=== PATIENT | male | born 1955 | race Caucasian/White ===

== ENCOUNTER 2020-05-22 10:39 | Outpatient (CLI) | payer OTHER, SELFPAY ==
--- NOTE | ~2020-05-22 | XR_ITS ---
XR hip RT 2V w AP pelvis 05/22/2020 11:01 Indication: Right hip pain Procedure: 3 views right hip Comparison: No prior studies for comparison. Findings: There is mild-moderate osteoarthritis of the hips, right greater than left. There is lower lumbar spondylosis. Pelvic rings are intact. No significant soft tissue abnormality. No radiopaque fo reign bodies. Impression: 1: Mild-moderate osteoarthritis of the hips, right greater than left. Reviewed, dictated and finalized at location B. Impression: 1: Mild-moderate osteoarthritis of the hips, right greater than left.
== END 2020-05-22 10:40 | disposition home or self-care (01) ==
LOC: ANHIMG 10:44
PROVIDERS: PCP Family Medicine; Visit Provider Physician Assistant
DX: M16.0 Bilateral primary osteoarthritis of hip (principal)
CPT/HCPCS: 73502

== ENCOUNTER → 2020-10-23 10:16 | Outpatient (CLI) | payer OTHER, SELFPAY ==
--- NOTE | ~2020-10-23 | XR_ITS ---
XR chest 2V DATE: 10/23/2020 10:37 INDICATION: Chest pain TECHNIQUE: 2 views COMPARISON: 01/27/2011 PA and lateral chest FINDINGS: Normal heart size. There is aortic tortuosity. No hilar or mediastinal enlargement. No pulmonary infiltrate or consolidation, pleural effusion or pulmonary vascular congestion or pneumo thorax. IMPRESSION: No active cardiopulmonary disease Aortic tortuosity Reviewed, dictated and finalized at location B. S SPECIALIST
== END ==
PROVIDERS: PCP Family Medicine; Visit Provider Physician Assistant Medical
DX: R07.9 Chest pain, unspecified (principal); I77.1 Stricture of artery
CPT/HCPCS: 71046

== ENCOUNTER 2020-10-25 09:26 | Outpatient (CLI) | payer OTHER, SELFPAY ==
--- NOTE | 2020-10-25 09:47 | EST_ITS ---
Patient Info Name: Jose Garcia Age: 65 years : 1955 Gender: Male Ht: 71 in Wt: 245 lbs BSA: 2.40 m2 Exam Date: 10/25/2020 10:37 AM Exam Location: [facility] Stress Patient Status: Outpatient Admit Date: 10/25/2020 Staff Ordering Physician: Trenton Peguero PA-C Attending Provider: Trenton Peguero PA-C Exercise Technologist: Judy Lara RDCS Exercise Physician: Amaury Diana DO Exam Type: CA stress test treadmill Study Info Indications R07.9 - Chest pain, unspecified A treadmill exercise stress test was performed. Summary 1. 1. Negative Ruben exercise stress test for ischemic ST changes by ECG criteria. 2. 2. Reduced functional capacity, achieving 7 METs of workload. 3. 3. Rapid HR response to exercise. 4. 4. Appropriate HR recovery at 1 minute post exercise. 5. 5. No imaging with stress testing. 6. 6. Patient informed of the above results. Protocol: Ruben Stress ECG Details Stage: REST Duration (min): 6 min : 37 sec Speed (mph): 0.0 Grade (%): 0 HR (bpm): 100 SBP (mmHg): 114 DBP (mmHg): 72 METS: --- Stage: REST Duration (min): 20 min : 11 sec Speed (mph): 0.0 Grade (%): 0 HR (bpm): 91 SBP (mmHg): 114 DBP (mmHg): 72 METS: --- Stage: STAGE 1 Duration (min): 1 min : 0 sec Speed (mph): 1.7 Grade (%): 10 HR (bpm): 130 SBP (mmHg): 114 DBP (mmHg): 72 METS: --- Stage: STAGE 1 Duration (min): 2 min : 0 sec Speed (mph): 1.7 Grade (%): 10 HR (bpm): 139 SBP (mmHg): 114 DBP (mmHg): 72 METS: --- Stage: STAGE 1 Duration (min): 3 min : 0 sec Speed (mph): 1.7 Grade (%): 10 HR (bpm): 143 SBP (mmHg): 162 DBP (mmHg): 73 METS: --- Stage: STAGE 2 Duration (min): 1 min : 0 sec Speed (mph): 2.5 Grade (%): 12 HR (bpm): 149 SBP (mmHg): 162 DBP (mmHg): 73 METS: --- Stage: STAGE 2 Duration (min): 2 min : 0 sec Speed (mph): 2.5 Grade (%): 12 HR (bpm): 153 SBP (mmHg): 153 DBP (mmHg): 86 METS: --- Stage: STAGE 2 Duration (min): 2 min : 0 sec Speed (mph): 2.5 Grade (%): 12 HR (bpm): 153 SBP (mmHg): 153 DBP (mmHg): 86 METS: --- Stage: RECOVERY Duration (min): 0 min : 59 sec Speed (mph): 0.0 Grade (%): 0 HR (bpm): 140 SBP (mmHg): 155 DBP (mmHg): 82 METS: --- Stage: RECOVERY Duration (min): 1 min : 59 sec Speed (mph): 0.0 Grade (%): 0 HR (bpm): 125 SBP (mmHg): 155 DBP (mmHg): 82 METS: --- Stage: RECOVERY Duration (min): 2 min : 59 sec Speed (mph): 0.0 Grade (%): 0 HR (bpm): 118 SBP (mmHg): 174 DBP (mmHg): 83 METS: --- Stage: RECOVERY Duration (min): 3 min : 59 sec Speed (mph): 0.0 Grade (%): 0 HR (bpm): 112 SBP (mmHg): 174 DBP (mmHg): 83 METS: --- Stage: RECOVERY Duration (min): 4 min : 59 sec Spe
== END 2020-10-25 09:27 | disposition home or self-care (01) ==
PROVIDERS: PCP Family Medicine; Visit Provider Physician Assistant Medical
DX: R07.9 Chest pain, unspecified (principal)
CPT/HCPCS: 93017

== ENCOUNTER 2020-11-07 15:59 | Outpatient (CLI) | payer OTHER, SELFPAY | END 2020-11-07 16:00 | disposition home or self-care (01) | LOC: ANHCOVIDVC 15:59 | PROVIDERS: PCP Family Medicine | DX: Z23 Encounter for immunization (principal) | CPT/HCPCS: 0001A; 91300 ==

== ENCOUNTER 2020-11-28 15:56 | Outpatient (CLI) | payer OTHER, SELFPAY | END 2020-11-28 15:57 | disposition home or self-care (01) | LOC: ANHCOVIDVC 15:56 | PROVIDERS: PCP Family Medicine | DX: Z23 Encounter for immunization (principal) | CPT/HCPCS: 0002A; 91300 ==

== ENCOUNTER 2021-06-11 09:49 | Outpatient (CLI) | payer OTHER, SELFPAY ==
--- NOTE | 2021-06-11 | ECG_ITS ---
Measurements Intervals [place] Rate: 91 P: 33 WI: 173 QRS: 15 QRSD: 104 T: 52 QT: 329 QTc: 405 Interpretive Statements SINUS RHYTHM EARLY PRECORDIAL R/S TRANSITION BORDERLINE ECG Electronically Signed On 06-11-2021 11:09:03 CDT by Amaury Diana D.O.
[2021-06-11 10:25] LABS: Hematocrit 54.9 % (42.0-52.0); Hemoglobin 18.2 g/dL (14.0-18.0)
[2021-06-11 10:39] LABS: Albumin Level 4.5 g/dL (3.5-5.1); Estimated Glomerular Filt Rate 51; Glucose 97 mg/dL (65-110)
[2021-06-11 10:47] LABS: Hemoglobin A1C 5.5 % (<5.7); Urine Cotinine NEGATIVE
== END 2021-06-11 09:50 | disposition home or self-care (01) ==
LOC: ANHLAB 09:55
PROVIDERS: PCP Family Medicine; Visit Provider Orthopaedic Surgery
DX: M16.11 Unilateral primary osteoarthritis, right hip (principal); Z01.818 Encounter for other preprocedural examination; R94.31 Abnormal electrocardiogram [ECG] [EKG]
CPT/HCPCS: 80307; 82040; 82565; 82947; 83036; 85014; 85018; 93005

== ENCOUNTER 2021-06-20 09:46 | Outpatient (CLI) | payer OTHER, SELFPAY ==
[2021-06-20 11:29] LABS: Basophils Absolute Auto 0.1 K/mm3 (0.0-0.1); Basophils Percent Auto 1.2 % (0.2-1.2); Eosinophils Absolute Auto 0.2 K/mm3 (0-0.3); Eosinophils Percent Auto 2.6 % (0-4.4); Hematocrit 57.8 % (42.0-52.0); Hemoglobin 19.1 g/dL (14.0-18.0); Immature Granulocyte Absolute 0.02 K/mm3 (0.00-0.031); Immature Granulocyte Percent A 0.3 % (0-0.5); Lymphocytes Absolute Auto 2.25 K/mm3 (0.9-3.2); Lymphocytes Percent Auto 29.2 % (18.3-44.2); Mean Corpuscular Hemoglobin 32.9 pg (26-34); Mean Corpuscular Volume 99.5 fl (80-100); Mean Platelet Volume 9.1 fl (7.4-10.4); Monocytes Absolute Auto 0.8 K/mm3 (0.1-0.6); Monocytes Percent Auto 10.6 % (2.6-8.5); Neutrophils Absolute Auto 4.3 K/mm3 (1.3-6.7); Neutrophils Percent Auto 56.1 % (45.5-73.1); Platelet Count Result 255 k/mm3 (150-375); Red Blood Count 5.81 M/mm3 (4.6-6.20); Red Cell Distribution Width 13.6 % (11.5-14.5); White Blood Count 7.7 K/mm3 (4.5-10.0)
[2021-06-20 12:16] LABS: Anion Gap 9 mmol/L (8-16); Blood Urea Nitrogen 15 mg/dL (9-20); Calcium 9.7 mg/dL (8.4-10.2); Carbon Dioxide 28 mmol/L (22-30); Chloride 101 mmol/L (98-107); Estimated Glomerular Filt Rate > 60; Glucose 93 mg/dL (65-110); Potassium 4.6 mmol/L (3.4-5.0); Sodium 138 mmol/L (137-145)
== END 2021-06-20 09:47 | disposition home or self-care (01) ==
LOC: ANHSURGERY 09:48
PROVIDERS: Anesthesiology; PCP Family Medicine; Visit Provider Orthopaedic Surgery
DX: M16.11 Unilateral primary osteoarthritis, right hip (principal); E11.9 Type 2 diabetes mellitus without complications; Z01.818 Encounter for other preprocedural examination
CPT/HCPCS: 36415; 80048; 85025; 87081

== ENCOUNTER 2021-07-09 00:39 | Day surgery (SDC) | payer OTHER, SELFPAY ==
[2021-06-20 10:07] VITALS: BP 143/90; PULSE 93; RESP 18; TEMP 36.7; O2SAT 95; BMI 33.8
--- NOTE | 2021-07-08 14:29 | WPDANESEPPF ---
Anes - Initial Pre Proc Eval Procedure: Operation Date: 07/09/21 12:00 Proposed Procedures p Right Total Hip Arthroplasty - Donald James MD Date/Time: 07/08/21 14:29 Surgeon: Donald James MD Pre Op Diagnosis: Primary OA Rt Hip Patient Data Age: 66 Gender: M Height: 1.8 m Weight: 110 kg Last Vital Signs Temp 36.7 C 06/20/21 10:07 Pulse 93 06/20/21 10:07 Resp 18 06/20/21 10:07 BP 143/90 H 06/20/21 10:07 Pulse Ox 95 06/20/21 10:07 Allergies Allergy/AdvReac Type Severity Reaction Status Date / Time neomycin Allergy Mild Redness of Verified 07/09/21 10:03 Skin polymyxin B Allergy Mild Redness of Verified 07/09/21 10:03 Skin Home Medications Medication Instructions Recorded Confirmed Type furosemide 20 mg tablet 20 mg PO DAILY PRN tablet 04/21/21 07/09/21 History metformin 500 mg tablet,extended 500 mg PO DAILY #90 tablet 04/21/21 07/09/21 Rx release 24 hr cholecalciferol (vitamin D3) 125 mcg PO DAILY 06/20/21 07/09/21 History lisinopril 10 mg PO HS 06/20/21 07/09/21 History multivitamin [Multiple Vitamins] 1 tablet PO DAILY 06/20/21 07/09/21 History simvastatin 10 mg PO HS 06/20/21 07/09/21 History zolpidem 12.5 mg PO HS 06/20/21 07/09/21 History Patient hx anesthesia problems: none Family hx anesthesia problems: none Results Review: All pre-operative results and documents have been reviewed as part of the pre-operative evaluation. [facility] Past Medical History Medical History (Updated 07/08/21 @ 14:29 by Candelario Bañuelos MD) Bilateral hip joint arthritis Hernia (~2008) High cholesterol Low back pain Metabolic syndrome Obesity (BMI 30.0-34.9) Open fracture of ankle (~2011) Prediabetes Sleep apnea Tachyarrhythmia Surgical History Surgical History History of surgery on arm (~1992) Accident to the right arm, surgery to repair damage Family History Family History Father Malignant neoplasm of prostate Family history of congestive heart failure Patient's father is Mother Family history of primary malignant neoplasm of liver Family history of malignant neoplasm of brain Family history of malignant neoplasm of breast Patient's mother is Other No family history of malignant neoplasm Social History Social History Smoking packs per day: 1 Smoking cigarettes per day: 20.0 Years smoked: 15 Smoking pack-years: 15.00 Smoking status: Former smoker Tobacco type: cigarettes Smoking end date: 03/06/99 Alcohol intake: current Substance use: never Living arrangements: with family Additional living arrangements comments: Spiritual care concerns: No Anes - Eval Final PreProcedure Day of Procedure 07/08/21 14:29 Patient weight: obese Heart: regular rate and rhythm Lungs: clear to auscultation and normal air movement Airway: Mallampati scale class II Neurological: alert and oriented Last oral intake: >/= 8 hours ASA classification: III Emergent: no Anesthetic plan: proceed Anesthesia type and monitoring: general LMA and ETT Results Review: All pre-operative results and documents have been reviewed as part of the pre-operative evaluation. Informed Consent: The patient's anesthetic plan and its attendant risks and benefits were discussed with the patient/family/POA. Questions were solicited and answers provided to the satisfaction of the patient/family/POA.
[2021-07-09] VITALS (14 sets, daily range): BP systolic 103–133; BP diastolic 64–89; PULSE 78–109; RESP 10–20; TEMP 36.2–36.6; O2SAT 91–97
--- NOTE | ~2021-07-09 | XR_ITS ---
XR hip RT min 2V DATE: 07/09/2021 16:01 INDICATION: Right total hip replacement TECHNIQUE: Postoperative portable AP and crosstable lateral views COMPARISON: 06/04/2021 right hip FINDINGS: Status post right femoral head and neck resection and right total hip replacement. No fracture or dislocation. There is expected postoperative mild subcutaneous emphysema. IMPRESSION: Right total hip arthroplasty Reviewed, dictated and finalized at location A.
[2021-07-09] MEDS: ACETAMINOPHEN 500 MG TABLET 1000 MG PO (10:07)
[2021-07-09 10:26] LABS: Glucose Point of Care 97 mg/dl (65-105)
[2021-07-09] MEDS: LACTATED RINGERS 1,000 ML 30 ML IV CONT ×2 (10:27→14:53)
[2021-07-09] MEDS: TRANEXAMIC ACID 1,000MG/ISO100 1,000 MG/100 ML BAG 200 MG IVPB (11:41)
--- NOTE | 2021-07-09 12:10 | WPDHPUPDATE1 ---
History and Physical Update Update Date/Time: 07/09/21 12:10 History and Physical has been reviewed, including an updated exam of the patient. There are NO changes in the patient's condition. Risks, benefits, and alternatives have been discussed and questions answered. Patient agrees to proceed with procedure.
[2021-07-09] MEDS: ceFAZolin 2 GM/D5W 50 ML 2 GM/50 ML BAG IVPB ×2 (12:16→20:03)
[2021-07-09] MEDS: fentaNYL CITRATE INJ (*CRX) 100 MCG/2 ML VIAL 25 MCG IV PUSH ×8 (15:03→15:46)
--- NOTE | 2021-07-09 15:27 | P.OP_ITS ---
Procedure Note - Detailed Date of Procedure 07/09/21 Pre-op Diagnosis Primary OA Rt Hip Post-op Diagnosis same Procedure Performed Right Total Hip Arthroplasty Surgeon Donald James MD Braider Operator Alicia Houston PA-C Anesthesia general Description of Procedure The patient was given preoperative antibiotics. A general anesthetic was administered. The patient was carefully placed in the lateral decubitus position on the PEG board. The shoulders and hips were carefully positioned for component and leg length positioning reference. The hip was prepped and draped in the usual sterile fashion. A longitudinal incision was created over the posterior aspect of the greater trochanter. Careful dissection was brought down through the deep fascia with electrocautery. A minimally invasive optimized posterior approach to the hip was performed. The short external rotators and c apsule were taken down in an L-shaped capsulotomy. The tissue was tagged for later repair using number 2 high strength suture. The femoral neck was measured and taken in situ. The femoral head was removed. The acetabulum was carefully exposed. The inferior capsule was released. The labrum was resected. The acetabulum was sequentially reamed to the intended cup size. The cup was impacted into position with excellent press-fit. Typical anatomic landmarks, including the bony contact points as well as the inferior transverse acetabular ligament were used to confirm cup positioning with preoperative templating. Attention was turned to the femur, which was carefully exposed. The hip was reamed and then broached sequentially. Excellent press-fit was obtained with the broach. The hip was trialed. Measurements were utilized, including the lesser trochanter as well as the center of the femoral head and the tip of the trochanter, and excellent assessment of the offset and leg lengths were confirmed. The real component was impacted into position. Trialing confirmed appropriate leg length and offset with soft tissue balancing as well apparent feel of the leg, both at the knee and the heel. Soft tissues were assessed using the the iliotibial band. Reduction of the posterior capsule and external rotators were also used as a secondary assessment. The hip was copiously irrigated with pulsatile lavage antibiotic solution periodically throughout the procedure. The real components were then assembled and reduced. The hip was stable throughout typical maneuvers, including extension, external rotation to 70 degrees, the position of sleep as well as flexion to 90 degrees with internal rotation past 45 degrees. The shake test confirmed stability without impingement. Osteophytes were removed as necessary. The short external rotators and capsule were repaired back to the posterior trochanter through drill holes. The deep fascia was repaired with running number 2 Quill suture, followed by 0 Stratafix suture and 2-0 Stratafix suture in the dermis. Steri- Strips were placed on the skin, followed by a sterile silver occlusive dressing. There were no complications. Meticulous hemostasis was maintained with the AquaMantys device. The patient was brought to the recovery room in stable condition. There were no complications. Implants The Accolade II hip stem, 127 degree size 5 , was utilized with excellent press-fit. The 56 mm Trident II acetabular component was impacted with excellent press-fit stability. The +0 , 36 mm Biolox ceramic femoral head was utilized. Estimated Blood Loss -300.0 Drains No Packing No Pathology none sent Complications No immediate complications Condition stable Disposition PACU
--- NOTE | 2021-07-09 15:52 | SUR.PHASEI ---
PORTABLE XRAY OF RIGHT HIP.
[2021-07-09] MEDS: KETOROLAC 30 MG/ML VIAL (*BKC) IV PUSH (16:25)
[2021-07-09] MEDS: HYDROmorphone HCL INJ (*CRX) 1 MG/ML SYR 0.5 MG IV PUSH ×2 (16:36→16:47)
--- NOTE | 2021-07-09 17:00 | ADMGEN ---
This patient, Jose Garcia, was admitted to Medical Room 253-01. Patient/family oriented to hospital policies and general routines including ID bracelet, bed and alarms, visiting hours, pain management, procedures, bathroom and other care routines, personal items, smoking policy, room service/diet, and visiting hours. Information on how to activate the Rapid Response Team has been discussed. Patient/Family are encouraged to report perceived risks to care and to ask questions if they do not understand what they are told or what they should do.
[2021-07-09 17:29] LABS: Glucose Point of Care 102 mg/dl (65-105)
[2021-07-09 18:02] LABS: Hematocrit 49.9 % (42.0-52.0); Hemoglobin 16.4 g/dL (14.0-18.0)
[2021-07-09 18:07] LABS: Glucose Point of Care 117 mg/dl (65-105)
[2021-07-09] MEDS: MELOXICAM 7.5 MG TABLET PO (18:28)
[2021-07-09] MEDS: DOCUSATE SODIUM 100 MG CAPSULE PO (18:28)
[2021-07-09] MEDS: ASPIRIN 81 MG ENTERIC TABLET PO (18:28)
--- NOTE | 2021-07-09 19:00 | WPDCN ---
Assessment and Plan Assessment and plan (1) Arthritis of right hip: Code(s): M16.11 - Unilateral primary osteoarthritis, right hip Status: Acute Assessment and Plan: Postoperative day 0 status post right hip arthroplasty. Wound care and pain control will be deferred to Dr. James as well as DVT prophylaxis. Fall precautions initiated. PT / OT consulted. (2) Obstructive sleep apnea on CPAP: Code(s): G47.33 - Obstructive sleep apnea (adult) (pediatric); Z99.89 - Dependence on other enabling machines and devices Status: Acute Assessment and Plan: CPAP will be provided for the patient to use while hospitalized. (3) Hypertension: Code(s): I10 - Essential (primary) hypertension Status: Acute Assessment and Plan: Blood pressures were reviewed and they have been stable postoperatively. Continue antihypertensives and monitor daily. (4) Dyslipidemia: Code(s): E78.5 - Hyperlipidemia, unspecified Status: Acute Assessment and Plan: Continue statin. Check LFTs in a.m. (5) Prediabetes: Code(s): R73.03 - Prediabetes Status: Acute Assessment and Plan: Resume metformin on discharge. Additional Plan Thank you for allowing us to participate in this patient's care. Please do not hesitate to contact us with any questions. Supervising physician for this medical consultation is Dr. Brenda Ham. HPI Data of Consult Date/Time: 07/09/21 19:00 Requesting Physician: Donald Jamse MD Primary Care Provider: Migue Carolina MD Consult Narrative Narrative: This is a very pleasant 66-year-old male with prediabetes, hypertension, hyperlipidemia, sleep apnea, and osteoarthritis whom the hospital service has been consulted for management of his medical conditions status post right hip arthroplasty. He has had longstanding pain in that right hip not amenable to conservative outpatient treatment and thus he elected for replacement today. His surgery was performed under general anesthesia with no immediate complications documented an estimated blood loss of 300 mL. He has done well postoperatively and has been ambulating to the bathroom and was up in a chair earlier without issue. His pain has been manageable. Appetite was a bit decreased this evening but he did eat some and he denies nausea and vomiting. He also denies postoperative fever, chills, sweats, chest pain, and shortness of breath. He denies paresthesias, skin color, temperature changes distal to the surgical site. Review of Systems Review of Systems: Twelve systems were reviewed. No recent cold or flu symptoms. No sick contacts. He is compliant with his CPAP at nighttime. He has been on metformin for quite some time due to pre diabetes with improvement his roast recent hemoglobin A1c to 5.5%. He believes is hypertension and dyslipidemia are well controlled on medication. The patient does have some mild left hip discomfort but he is hoping that getting the right hip replaced will in turn help his left hip somewhat as it will be compensating as much. No personal or family history of venous thromboembolism. Except as documented, all other systems were reviewed and are negative. [facility] Past Medical History Medical History (Updated 07/09/21 @ 22:15 by Jia Irizarry PA-C) Bilateral hip joint arthritis Dyslipidemia Hypertension Metabolic syndrome Normal cardiac stress test (10/25/20) Obesity (BMI 30.0-34.9) Obstructive sleep apnea on CPAP Open fracture of ankle (~2011) Prediabetes Recent hemoglobin A1c was 5.5%. Surgical History Surgical History (Updated 07/09/21 @ 22:13 by Jia Irizarry PA-C) History of open reduction and internal fixation (ORIF) procedure (10/2010) ORIF of left ankle fracture with subsequent hardware removal. History of total right hip arthroplasty
[2021-07-09] MEDS: oxyCODONE HCL (*CRX) 5 MG TAB IR PO ×2 (19:33→23:30)
[2021-07-09 20:40] LABS: Glucose Point of Care 124 mg/dl (65-105)
[2021-07-09] MEDS: ZOLPIDEM TARTRATE (*CRX) 5 MG TABLET 10 MG PO (21:38)
[2021-07-09] MEDS: lisinopriL 10 MG TABLET PO (21:38)
[2021-07-09] MEDS: ACETAMINOPHEN 325 MG TABLET 650 MG PO (21:38)
[2021-07-09] MEDS: SIMVASTATIN 10 MG TABLET PO (21:38)
[2021-07-09] MEDS: FAMOTIDINE 20 MG TABLET PO (21:38)
[2021-07-10 00:25] VITALS: PULSE 98; RESP 14; O2SAT 94
[2021-07-10 02:00] VITALS: BP 118/63; PULSE 99; RESP 16; TEMP 36.3; O2SAT 93
[2021-07-10] MEDS: ACETAMINOPHEN 325 MG TABLET 650 MG PO ×2 (03:38→08:12)
[2021-07-10] MEDS: ceFAZolin 2 GM/D5W 50 ML 2 GM/50 ML BAG IVPB ×2 (03:39→11:12)
[2021-07-10 05:31] LABS: Basophils Absolute Auto 0.1 K/mm3 (0.0-0.1); Basophils Percent Auto 0.4 % (0.2-1.2); Eosinophils Absolute Auto 0.1 K/mm3 (0-0.3); Eosinophils Percent Auto 0.5 % (0-4.4); Hematocrit 49.3 % (42.0-52.0); Immature Granulocyte Absolute 0.05 K/mm3 (0.00-0.031); Immature Granulocyte Percent A 0.4 % (0-0.5); Lymphocytes Absolute Auto 1.16 K/mm3 (0.9-3.2); Lymphocytes Percent Auto 9.3 % (18.3-44.2); Mean Corpuscular HGB Conc 32.5 g/dl (32-36); Mean Corpuscular Hemoglobin 32.9 pg (26-34); Mean Corpuscular Volume 101.4 fl (80-100); Mean Platelet Volume 9.3 fl (7.4-10.4); Monocytes Absolute Auto 1.3 K/mm3 (0.1-0.6); Monocytes Percent Auto 10.1 % (2.6-8.5); Neutrophils Percent Auto 79.3 % (45.5-73.1); Platelet Count Result 178 k/mm3 (150-375); Red Blood Count 4.86 M/mm3 (4.6-6.20); Red Cell Distribution Width 13.7 % (11.5-14.5); White Blood Count 12.5 K/mm3 (4.5-10.0)
[2021-07-10 05:35] LABS: Alanine Aminotransferase 29 U/L (4-50); Albumin Level 3.7 g/dL (3.5-5.1); Alkaline Phosphatase 47 U/L (38-126); Anion Gap 9 mmol/L (8-16); Aspartate Amino Transferase 67 U/L (17-59); Bilirubin,Total 0.7 mg/dL (0.2-1.3); Blood Urea Nitrogen 19 mg/dL (9-20); Calcium 8.6 mg/dL (8.4-10.2); Carbon Dioxide 25 mmol/L (22-30); Chloride 101 mmol/L (98-107); Estimated CRCL calculation 60 ml/min; Estimated Glomerular Filt Rate 51; Glucose 111 mg/dL (65-110); Magnesium 2.2 mg/dL (1.6-2.3); Potassium 4.3 mmol/L (3.4-5.0); Sodium 135 mmol/L (137-145)
[2021-07-10 06:09] VITALS: BP 117/67; PULSE 100; RESP 16; TEMP 36.7; O2SAT 98
[2021-07-10] MEDS: oxyCODONE HCL (*CRX) 5 MG TAB IR PO ×2 (06:10→10:22)
--- NOTE | 2021-07-10 08:06 | PM.DS ---
DS: Admitting Diagnosis Discharge Date 07/10/21 Admitting Diagnosis OA Right hip DS: Discharge Diagnosis Discharge Diagnosis (1) Orthopedic aftercare for joint replacement: Code(s): Z47.1 - Aftercare following joint replacement surgery Status: Acute (2) Status post total hip replacement, right: Code(s): Z96.641 - Presence of right artificial hip joint Status: Acute Assessment and Plan: Postop day 1: Total hip arthroplasty. Patient tolerated procedure well. No complications. Pain manageable with pain medication. No numbness or tingling. We had a lengthy discussion regarding postoperative wound care, limitations, expectations, and exercises. Patient shows good understanding. Patient has had initial physical therapy and is tolerating it well. DVT prophylaxis: 81 mg baby aspirin b.i.d. for 14 days. Short frequent walks. Compression socks. Pain medication: Percocet. Meloxicam Patient has followup appointment with Dr. James in 3 weeks DS: Summary Hospital Course Reason for hospitalization: Total hip arthroplasty Hospital Course: Patient tolerated procedure well. Has had initial PT/OT and made good progress. Status at Discharge Functional status at discharge: uses cane/walker Overall status at discharge: patient is progressing back to baseline Time Spent with Patient Time attestation: Total time spent providing and/or coordinating discharge services: Exam Narrative: Overweight 66 y/o male. Resting comfortably in bed. Wearing compression socks bilaterally. Dressing dry and intact with no drainage. Moderate swelling. No ecchymosis. No erythema. No hematoma. Range of motion limited due to pain. Calf nontender. Thigh nontender. Neurologic status intact. No varicosities. Distal pulses palpable. DS: Data Data Completed and Pending Labs on day of discharge: Labs from last 24 hours 07/10/21 07/10/21 07/09/21 04:45 04:45 20:35 WBC 12.5 H RBC 4.86 Hgb 16.0 Hct 49.3 MCV 101.4 H MCH 32.9 MCHC 32.5 RDW 13.7 Plt Count 178 MPV 9.3 Immature Gran % (Auto) 0.4 Neut % (Auto) 79.3 H Lymph % (Auto) 9.3 L Bea[place]gard % (Auto) 10.1 H Eos % (Auto) 0.5 Baso % (Auto) 0.4 Lymph # (Auto) 1.16 [place] # (Auto) 1.3 H Eos # (Auto) 0.1 Baso # (Auto) 0.1 Abs Immat Gran (auto) 0.05 H Absolute Neuts (auto) 10.0 H Absolute Nucleated RBC 0.0 Nucleated RBC % 0.0 Sodium 135 L Potassium 4.3 Chloride 101 Carbon Dioxide 25 Anion Gap 9 BUN 19 Creatinine 1.40 H Estim Creat Clear Calc 60 Estimated GFR 51 L Glucose 111 H POC Capillary Glucose 124 H Calcium 8.6 Magnesium 2.2 Total Bilirubin 0.7 Direct Bilirubin 0.0 AST 67 H ALT 29 Alkaline Phosphatase 47 Total Protein 6.0 L Albumin 3.7 Blood Type Antibody Screen 07/09/21 07/09/21 07/09/21 17:59 17:48 14:57 WBC RBC Hgb 16.4 Hct 49.9 MCV MCH MCHC RDW Plt Count MPV Immature Gran % (Auto) Neut % (Auto) Lymph % (Auto) Bea[place] % (Auto) Eos % (Auto) Baso % (Auto) Lymph # (Auto) [place] # (Auto) Eos # (Auto) Baso # (Auto) Abs Immat Gran (auto) Absolute Neuts (auto) Absolute Nucleated RBC Nucleated RBC % Sodium Potassium Chloride Carbon Dioxide Anion Gap BUN Creatinine Estim Creat Clear Calc Estimated GFR Glucose POC Capillary Glucose 117 H 102 Calcium Magnesium Total Bilirubin Direct Bilirubin AST ALT Alkaline Phosphatase Total Protein Albumin Blood Type Antibody Screen 07/09/21 07/09/21 10:22 10:21 WBC RBC Hgb Hct MCV MCH MCHC RDW Plt Count MPV Immature Gran % (Auto) Neut % (Auto) Lymph % (Auto) Bea[place]gard % (Auto) Eos % (Auto) Baso % (Auto) Lymph # (Auto) Bea[place]gard # (Auto) Eos # (Auto) Baso # (Auto)
[2021-07-10] MEDS: FAMOTIDINE 20 MG TABLET PO (08:12)
[2021-07-10] MEDS: DOCUSATE SODIUM 100 MG CAPSULE PO (08:15)
[2021-07-10 08:37] LABS: Glucose Point of Care 101 mg/dl (65-105)
--- NOTE | 2021-07-10 10:15 | PM.IMPN ---
Progress Note: A&P Assessment and Plan (1) Arthritis of right hip: Code(s): M16.11 - Unilateral primary osteoarthritis, right hip Status: Acute Assessment and Plan: Postoperative day 1 status post right hip arthroplasty. Wound care and pain control will be deferred to Dr. James as well as DVT prophylaxis Antibiotics: Ancef x 3 bags Pain: Meloxicam 7.5mg PO BID, Roxicodone 5mg Q4hr PRN Antiemetic: Ondansetron 4mg Q4hr PRN Bowel: Colace Fall precautions initiated PT / OT consulted (2) Obstructive sleep apnea on CPAP: Code(s): G47.33 - Obstructive sleep apnea (adult) (pediatric); Z99.89 - Dependence on other enabling machines and devices Status: Acute Assessment and Plan: CPAP will be provided for the patient to use while hospitalized. (3) Hypertension: Code(s): I10 - Essential (primary) hypertension Status: Acute Assessment and Plan: Current BP 117/67 Continue home lisinopril 10mg PO daily Trend BP Adjust medications as needed (4) Dyslipidemia: Code(s): E78.5 - Hyperlipidemia, unspecified Status: Acute Assessment and Plan: Continue statin. Check LFT- AST/ALT 67/ (5) Prediabetes: Code(s): R73.03 - Prediabetes Status: Acute Assessment and Plan: Glucose 111 Continue home metformin Trend glucose Adjust medications as needed (6) Elevated AST (SGOT): Code(s): R74.01 - Elevation of levels of liver transaminase levels Status: Acute Assessment and Plan: AST 67 Very mildly elevated Probably from the surgery at this time trend Time Spent With Patient Time with patient: Greater than 35 minutes Subjective Date/time seen: 07/10/21 06:53 Interval history: Date/Time: 07/09/21 19:00 Narrative: This is a very pleasant 66-year-old male with prediabetes, hypertension, hyperlipidemia, sleep apnea, and osteoarthritis whom the hospital service has been consulted for management of his medical conditions status post right hip arthroplasty. He has had longstanding pain in that right hip not amenable to conservative outpatient treatment and thus he elected for replacement today. His surgery was performed under general anesthesia with no immediate complications documented an estimated blood loss of 300 mL. He has done well postoperatively and has been ambulating to the bathroom and was up in a chair earlier without issue. His pain has been manageable. Appetite was a bit decreased this evening but he did eat some and he denies nausea and vomiting. He also denies postoperative fever, chills, sweats, chest pain, and shortness of breath. He denies paresthesias, skin color, temperature changes distal to the surgical site. Date/time: 07/10/21 Patient stated that he feels great. He is ready to go home and think that he will be fine. He denies chest pain, shortness of breath, nausea, vomiting, weakness, fatigue, fevers, sweats, or chills. He did state that he knows he has to stay ahead of the pain to keep it under control. Review of Systems Review of Systems: All systems reviewed & are unremarkable except as noted in HPI and below Exam Const: General: cooperative, healthy appearing, no acute distress, well developed, alert and awake Nutritional Appearance: well nourished Orientation/consciousness: patient oriented x3 Limitations: no limitations HENMT: Head: normal to inspection Ears: hearing grossly normal bilaterally General nose exam: Normal external nose present Mouth: Yes Normal oral and palatal mucosa present, Yes lip normal and Yes tongue normal Teeth and gingiva: abnormal tooth and associated gingiva and poor dentition Eyes: General: appearance normal, both eyes and all related structures Neck: Neck: normal visual inspection, full ROM, trachea midline and supple Chest: Chest palpation & inspection: normal inspection of the chest Resp: Ef
[2021-07-10] MEDS: metFORMIN HCL XR 500 MG TAB.SR.24H PO (10:19)
[2021-07-10] MEDS: ASPIRIN 81 MG ENTERIC TABLET PO (10:19)
[2021-07-10] MEDS: MELOXICAM 7.5 MG TABLET PO (10:20)
[2021-07-10 10:54] VITALS: BP 124/68; PULSE 82; RESP 18; TEMP 36.4; O2SAT 98
[2021-07-10 11:45] LABS: Glucose Point of Care 108 mg/dl (65-105)
--- NOTE | 2021-07-10 13:14 | WPDANESPN ---
Anes - Prog Note Post-Op Date/Time: 07/10/21 13:14 Cardiovascular status: normal Respiratory status: normal Airway patency: baseline Mental status: baseline Post-Op hydration status: normal Vital Signs: Last Vital Signs Temp 36.4 C 07/10/21 10:54 Pulse 82 07/10/21 10:54 Resp 18 07/10/21 10:54 BP 124/68 07/10/21 10:54 Pulse Ox 98 07/10/21 10:54 Pain Score (VAS): 10/16 I/O: Intake & Output 07/09/21 07/10/21 07/10/21 23:59 07:59 15:59 Intake Total 1440 600 720 Output Total 450 Balance 1440 150 720 Laboratory Tests 07/10/21 04:45 07/10/21 04:45 07/09/21 07/09/21 07/09/21 14:57 17:48 17:59 WBC RBC Hgb 16.4 Hct 49.9 MCV MCH MCHC RDW Plt Count MPV Immature Gran % (Auto) Neut % (Auto) Lymph % (Auto) [place] % (Auto) Eos % (Auto) Baso % (Auto) Lymph # (Auto) [place] # (Auto) Eos # (Auto) Baso # (Auto) Abs Immat Gran (auto) Absolute Neuts (auto) Absolute Nucleated RBC Nucleated RBC % Sodium Potassium Chloride Carbon Dioxide Anion Gap BUN Creatinine Estim Creat Clear Calc Estimated GFR Glucose POC Capillary Glucose 102 117 H Calcium Magnesium Total Bilirubin Direct Bilirubin AST ALT Alkaline Phosphatase Total Protein Albumin 07/09/21 07/10/21 07/10/21 20:35 04:45 04:45 WBC 12.5 H RBC 4.86 Hgb 16.0 Hct 49.3 MCV 101.4 H MCH 32.9 MCHC 32.5 RDW 13.7 Plt Count 178 MPV 9.3 Immature Gran % (Auto) 0.4 Neut % (Auto) 79.3 H Lymph % (Auto) 9.3 L [place] % (Auto) 10.1 H Eos % (Auto) 0.5 Baso % (Auto) 0.4 Lymph # (Auto) 1.16 [place] # (Auto) 1.3 H Eos # (Auto) 0.1 Baso # (Auto) 0.1 Abs Immat Gran (auto) 0.05 H Absolute Neuts (auto) 10.0 H Absolute Nucleated RBC 0.0 Nucleated RBC % 0.0 Sodium 135 L Potassium 4.3 Chloride 101 Carbon Dioxide 25 Anion Gap 9 BUN 19 Creatinine 1.40 H Estim Creat Clear Calc 60 Estimated GFR 51 L Glucose 111 H POC Capillary Glucose 124 H Calcium 8.6 Magnesium 2.2 Total Bilirubin 0.7 Direct Bilirubin 0.0 AST 67 H ALT 29 Alkaline Phosphatase 47 Total Protein 6.0 L Albumin 3.7 07/10/21 07/10/21 07:53 11:42 WBC RBC Hgb Hct MCV MCH MCHC RDW Plt Count MPV Immature Gran % (Auto) Neut % (Auto) Lymph % (Auto) [place] % (Auto) Eos % (Auto) Baso % (Auto) Lymph # (Auto) [place] # (Auto) Eos # (Auto) Baso # (Auto) Abs Immat Gran (auto) Absolute Neuts (auto) Absolute Nucleated RBC Nucleated RBC % Sodium Potassium Chloride Carbon Dioxide Anion Gap BUN Creatinine Estim Creat Clear Calc Estimated GFR Glucose POC Capillary Glucose 101 108 H Calcium Magnesium Total Bilirubin Direct Bilirubin AST ALT Alkaline Phosphatase Total Protein Albumin Post-procedural complaints: none Patient Feedback: Patient satisfied with anesthetic care.
== END 2021-07-10 13:36 | disposition home or self-care (01) ==
LOC: ANHSURGERY 14:50 → ANH2MED 17:11
PROVIDERS: Physician Assistant; Physician Assistant Surgical; PCP Family Medicine; Visit Provider Orthopaedic Surgery
PROC: (CPT 27130; principal; 2021-07-09 12:00)
DX: M16.11 Unilateral primary osteoarthritis, right hip (principal); G47.33 Obstructive sleep apnea (adult) (pediatric); I10 Essential (primary) hypertension; E78.5 Hyperlipidemia, unspecified; R73.03 Prediabetes; R74.01 Elevation of levels of liver transaminase levels; E66.9 Obesity, unspecified; Z68.33 Body mass index [BMI] 33.0-33.9, adult; Z87.891 Personal history of nicotine dependence; Z79.84 Long term (current) use of oral hypoglycemic drugs
CPT/HCPCS: 27130; 36415; 73502; 80048; 80076; 80307; 82040; 82565; 82947; 82948; 83036; 83735; 85014; 85018; 85025; 86850; 86900; 86901; 87081; 93005; 97110; 97161; 97165; A9270; C1776; J0171; J0690; J1170; J1885; J2250; J2270; J2405; J2704; J2795; J3010; J7120

== ENCOUNTER 2023-05-07 12:45 | Outpatient (CLI) | payer OTHER, SELFPAY ==
--- NOTE | ~2023-05-07 | CT_ITS ---
EXAMINATION: CT shoulder RT wo con DATE: 05/07/2023 13:13 INDICATION: Right shoulder primary osteoarthritis. TECHNIQUE: Computed tomography (CT) of the right shoulder was performed without intravenous contrast. Automated exposure control and iterative reconstruction technique were employed. The dose-length pro duct was 580.82 mGy-cm. COMPARISON: Right shoulder radiographs 04/28/2023 FINDINGS: Bone alignment is normal. No fracture. There is advanced osteoarthritis of glenohumeral chan nt including bone volume loss of glenoid. There is severe acromioclavicular joint osteoarthritis with loose body. There is a large glenohumeral joint effusion with loose bodies. IMPRESSION: 1. Polyarticular osteoarthritis. 2. Large glenohumeral joint effusion with loose bodies. Reviewed, dictated and finalized at location E.
== END 2023-05-07 12:46 | disposition home or self-care (01) ==
PROVIDERS: PCP Family Medicine; Visit Provider Orthopaedic Surgery
DX: M19.011 Primary osteoarthritis, right shoulder (principal); M24.011 Loose body in right shoulder
CPT/HCPCS: 73200

== ENCOUNTER 2023-05-21 09:46 | Outpatient (CLI) | payer OTHER, SELFPAY ==
--- NOTE | 2023-05-21 10:38 | ECG_ITS ---
Measurements Intervals [place] Rate: 88 P: 50 KS: 185 QRS: 7 QRSD: 98 T: 48 QT: 331 QTc: 401 Interpretive Statements SINUS RHYTHM BASELINE ARTIFACT- III, AVF NORMAL ECG COMPARED TO ECG 06/11/2021 11:05:18 NO SIGNIFICANT CHANGES Electronically Signed On 05-21-2023 11:01:22 CDT by Amaury Diana D.O.
[2023-05-21 11:32] LABS: Basophils Absolute Auto 0.1 K/mm3 (0.0-0.1); Basophils Percent Auto 0.6 % (0.2-1.2); Eosinophils Absolute Auto 0.3 K/mm3 (0-0.3); Eosinophils Percent Auto 2.3 % (0-4.4); Hematocrit 51.4 % (42.0-52.0); Hemoglobin 17.2 g/dL (14.0-18.0); Immature Granulocyte Absolute 0.05 K/mm3 (0.00-0.031); Immature Granulocyte Percent A 0.4 % (0-0.5); Lymphocytes Absolute Auto 2.25 K/mm3 (0.9-3.2); Lymphocytes Percent Auto 17.5 % (18.3-44.2); Mean Corpuscular HGB Conc 33.5 g/dl (32-36); Mean Corpuscular Hemoglobin 32.8 pg (26-34); Mean Corpuscular Volume 98.1 fl (80-100); Mean Platelet Volume 9.5 fl (7.4-10.4); Monocytes Absolute Auto 1.1 K/mm3 (0.1-0.6); Monocytes Percent Auto 8.9 % (2.6-8.5); Neutrophils Absolute Auto 9.1 K/mm3 (1.3-6.7); Neutrophils Percent Auto 70.3 % (45.5-73.1); Platelet Count Result 250 k/mm3 (150-375); Red Blood Count 5.24 M/mm3 (4.6-6.20); Red Cell Distribution Width 14.4 % (11.5-14.5); White Blood Count 12.9 K/mm3 (4.5-10.0)
[2023-05-21 11:43] LABS: Anion Gap 10 mmol/L (8-16); Blood Urea Nitrogen 22 mg/dL (9-20); Calcium 9.5 mg/dL (8.4-10.2); Carbon Dioxide 27 mmol/L (22-30); Chloride 101 mmol/L (98-107); Estimated Glomerular Filt Rate > 60; Glucose 84 mg/dL (65-110); Potassium 4.4 mmol/L (3.4-5.0); Sodium 138 mmol/L (137-145)
== END 2023-05-21 09:47 | disposition home or self-care (01) ==
LOC: ANHSURGERY 09:49
PROVIDERS: Anesthesiology; PCP Family Medicine; Visit Provider Orthopaedic Surgery
DX: M19.011 Primary osteoarthritis, right shoulder (principal); I10 Essential (primary) hypertension; E11.9 Type 2 diabetes mellitus without complications; Z01.818 Encounter for other preprocedural examination
CPT/HCPCS: 36415; 80048; 85025; 86850; 86900; 86901; 87081; 93005

== ENCOUNTER 2023-06-01 02:04 | Day surgery (SDC) | payer OTHER, SELFPAY ==
[2023-05-21 10:03] VITALS: BP 135/87; PULSE 98; RESP 16; TEMP 36.6; O2SAT 96; BMI 31.3
--- NOTE | 2023-05-21 10:19 | PC.NURSE ---
Report to the Outpatient Waiting Room, entrance under the green pavilion located off [facility], at time _11:30AM on date __06/01/23 . Planned Procedure Time: _1:30PM . Time changes happen often and if your time is changed the preop area will call you the afternoon before. - You and your visitor will be asked to self-screen and do not enter if you have any COVID symptoms. - A mask is optional within the hospital at this time. Patients may have clear liquids (water, carbonated beverages, clear teas, apple juice) until 3 hours prior to surgery with a maximum of 20 ounces. - No food from midnight until time of surgery Take the following medications with a SIP of water the morning of surgery: ____NONE DO NOT STOP ANY OF YOUR OTHER PRESCRIPTION MEDICATIONS PRIOR TO SURGERY ?EXCEPT THE FOLLOWING Medications to discontinue per physician ___HOLD ALL VITAMINS/SUPPLEMENTS 3 DAYS PRE-OP Date to take last dose____05/28/23 Please no make-up, nail bulgarian, hairspray, perfume, deodorant, or body powder the day of surgery. No jewelry (including any body piercings) or valuables the day of surgery, leave them at home. Please take a shower or bath the night before, or the morning of, surgery with an antibacterial soap. Wear comfortable, loose fitting clothing. Children are encouraged to wear pajamas. - Jewelry must be removed prior to entering the operating room. Rings and piercings that are not removed may be cut off. - The hospital will not accept responsibility for valuables. - Please leave all valuables, including medications, at home the day of surgery. If you are going home after surgery, a licensed local company refrigerated truck driver must drive you home. - NO public transportation without another adult if you receive anesthesia. - We recommend that an adult stay with you for 24 hours following discharge. - We also recommend that you do not drive, make important decision, drink alcoholic beverages, or take any drugs that were not prescribed by your health care provider for at least 24 hours after your discharge time. Follow any additional instructions given to you from your surgeon. If you or anyone in your household have experienced Covid symptoms in the past week, please notify your surgeon or the nurse liaison at the phone number below for possible testing. Telephone instructions given to _PATIENT and asked if any additional questions and then verbalized understanding. Patient advised to call surgeon office or pre surgery nurse liaison [phone] if any additional questions.
[2023-06-01] VITALS (15 sets, daily range): BP systolic 122–146; BP diastolic 39–94; PULSE 83–109; RESP 12–18; TEMP 35.6–36.2; O2SAT 93–100
--- NOTE | ~2023-06-01 | XR_ITS ---
EXAM: XR shoulder RT min 2V DATE: 06/01/2023 17:04 HISTORY: RT TOTAL SHOULDER . COMPARISON: 04/28/2023. FINDINGS/IMPRESSION: Expected postsurgical changes, status post right shoulder arthroplasty, with no radiographic evidence of procedure or hardware related complication. Reviewed, dictated and finalized at location K.
--- NOTE | 2023-06-01 06:59 | WPDHPUPDATE1 ---
History and Physical Update Update Date/Time: 06/01/23 06:59 History and Physical has been reviewed, including an updated exam of the patient. There are NO changes in the patient's condition. Risks, benefits, and alternatives have been discussed and questions answered. Patient agrees to proceed with procedure.
[2023-06-01] MEDS: ACETAMINOPHEN 500 MG TABLET 1000 MG PO ×2 (11:46→21:11)
[2023-06-01] MEDS: LACTATED RINGERS 1,000 ML 30 ML IV CONT (12:01)
[2023-06-01 12:02] LABS: Glucose Point of Care 99 mg/dl (65-105)
--- NOTE | 2023-06-01 12:28 | WPDANESEPPF ---
Anes - Initial Pre Proc Eval Procedure: Operation Date: 06/01/23 13:30 Proposed Procedures p Right Anatomic Total Shoulder Arthroplasty - Donald James MD Date/Time: 06/01/23 12:28 Surgeon: Donald James MD Pre Op Diagnosis: right shoulder arthritis Patient Data Age: 67 Gender: M Height: 1.8 m Weight: 101.2 kg Last Vital Signs Temp 36.2 C L 06/01/23 12:05 Pulse 83 06/01/23 12:05 Resp 16 06/01/23 12:05 BP 138/90 06/01/23 12:05 Pulse Ox 100 06/01/23 12:05 O2 Del Method Room Air 06/01/23 12:05 Allergies Allergy/AdvReac Type Severity Reaction Status Date / Time neomycin Allergy Mild Redness of Verified 06/01/23 11:36 Skin polymyxin B Allergy Mild Redness of Verified 06/01/23 11:36 Skin Home Medications Medication Instructions Recorded Confirmed Type multivitamin (Multiple Vitamins 1 tablet PO DAILY 06/20/21 06/01/23 History tablet) furosemide 20 mg tablet 20 mg PO DAILY PRN Edema #90 tabs 12/16/22 05/21/23 Rx semaglutide 2 mg/dose (8 mg/3 mL) 2 mg (0.75 mL) subcut WEEKLY #3 mL 03/29/23 06/01/23 Rx subcutaneous pen injector (Ozempic) zolpidem 12.5 mg tablet,extended 12.5 mg PO HS #30 tabs 04/23/23 06/01/23 Rx release,multiphase celecoxib 200 mg capsule 200 mg PO QACLUNCH 05/21/23 06/01/23 History lisinopril 10 mg tablet 10 mg PO HS 05/21/23 06/01/23 History metformin 500 mg tablet,extended 500 mg PO QACLUNCH 05/21/23 06/01/23 History release 24 hr simvastatin 10 mg tablet 10 mg PO HS 05/21/23 06/01/23 History Laboratory Tests 06/01/23 11:56 POC Capillary Glucose 99 mg/dl (65-105) Patient hx anesthesia problems: none Family hx anesthesia problems: none Results Review: All pre-operative results and documents have been reviewed as part of the pre-operative evaluation. [facility] Past Medical History Medical History Bilateral hip joint arthritis Dyslipidemia Hypertension Metabolic syndrome Normal cardiac stress test (10/25/20) Obesity (BMI 30.0-34.9) Obstructive sleep apnea on CPAP Open fracture of ankle (~2011) Prediabetes Recent hemoglobin A1c was 5.5%. Surgical History Surgical History History of open reduction and internal fixation (ORIF) procedure (10/2010) ORIF of left ankle fracture with subsequent hardware removal. History of total right hip arthroplasty (07/09/21) History of vascular surgery (1992) Repair of vascular injury to right upper extremity. Family History Family History Father Malignant neoplasm of prostate Family history of congestive heart failure Patient's father is Mother Family history of primary malignant neoplasm of liver Family history of malignant neoplasm of brain Family history of malignant neoplasm of breast Patient's mother is Other No family history of malignant neoplasm Social History Social History Social History: Surrogate decision maker: Jennifer Garcia, . Code status: Full code. Caffeine-coffee/soda daily Smoking packs per day: 1 Smoking cigarettes per day: 20.0 Years smoked: 15 Smoking pack-years: 15.00 Smoking status: Former smoker Tobacco type: cigarettes Smoking end date: 03/06/98 Alcohol intake: current Alcohol use details: seldom Substance use: never Lack of Transportation: No Lack of Food: Never True Current Housing: I Have Housing Concerned About Future Housing: No Difficulty Paying Gas/Electric Bills: No Difficulty Paying for Meds: No Currently Unemployed: No Education: High School Diploma/GED Difficulty w/ Childcare or Family Care: No Living arrangements: with family Additional living arrangements comments: Additional occupation/education comments: [employer]
[2023-06-01] MEDS: TRANEXAMIC ACID 1,000MG/ISO100 1,000 MG/100 ML BAG 200 MG IVPB (12:42)
[2023-06-01] MEDS: ceFAZolin 2 GM/D5W 50 ML 2 GM/50 ML BAG IVPB ×2 (13:36→21:12)
[2023-06-01] MEDS: VANCOMYCIN HCL 1,000 MG VIAL 1000 MG TOPICAL (14:26)
--- NOTE | 2023-06-01 16:34 | W.PM.PROC2 ---
Procedure Note - Detailed Date of Procedure 06/01/23 Pre-op Diagnosis Right shoulder glenohumeral arthritis Post-op Diagnosis Same Procedure Performed 1. Anatomic total shoulder arthroplasty, right shoulder 2. Lesser tuberosity osteotomy Surgeon Donald James MD Track Layer Head Alicia Houston PA-C Anesthesia General and Regional (Interscalene block.) Indications Excellent preoperative motion and cuff strength. Severe degenerative disease with osteophytes. Constant pain worse with activities. Findings Cuff intact. Excellent bone quality. Very large stature. 24 degree retroversion corrected approximately 10-15 degrees, using the 3-D software planning system. Inset glenoid component with excellent stability. Description of Procedure The patient was given an interscalene block in the preoperative area. Preoperative antibiotics were given. The patient was transferred to the operating room and a general anesthetic was administered. The beach chair position was used at 35 degrees. All bony prominences were padded. The head was carefully stabilized on the [place] head athletic trainer. A sterile prep and drape was performed in the usual manner with Chloraprep. A longitudinal incision was created at the anterior shoulder just lateral to the deltopectoral interval. Careful dissection was performed to expose the interval and protect the cephalic vein. The vein was retracted medially. The upper border of the pectoralis was released. Anterior circumflex vessel branches were suture ligated. The biceps was tenodesed. A small lesser tuberosity osteotomy was performed after opening the joint capsule at the rotator interval. The inferior capsule was released, exposing the humeral head. Osteophytes were removed. Care was taken to stay on bone to protect the axillary nerve. A Fukuda was placed in the joint. The subscapularis was mobilized, the inferior capsule and long head of triceps released, and the superior and middle glenohumeral ligaments released as well. Attention was turned to the humerus again. The anatomic head cut was taken with the oscillating saw. Sounding and broaching was performed. The neck anteversion and inclination were carefully assessed. Head sizing and offset were determined. The cut protector was placed, and attention was turned to the glenoid. Retractors were placed. Releases were carried out for exposure. Labral tissue was resected. The patient was very large and muscular. A posterior capsule excision improved the exposure. The sizing template was used and a guide pin was placed. 10? of deformity correction was performed. The reamer was placed over the guide pin taken down to create a 2 millimeter minimal wall posteriorly. The peg drill guide was applied and the pegs drilled. The trial component was placed and fit very nicely. Excellent stability was confirmed. The real component was cemented into position. Excess cement was carefully removed. The humerus was prepared for subscapularis repair with the drilling and passage of 3 suture leaders. The real humeral stem and head were impacted into position. The shoulder was copiously irrigated periodically with pulsatile lavage. The shoulder was reduced and the subscapularis repaired with number 5 Ethibond suture modified Darren-Fritz sutures, and reinforced with multiple number 2 Ethibond suture. The rotator interval was reapproximated laterally. The biceps tenodesis was incorporated with the pectoralis tendon repair using 5. Ethibond suture. The deltopectoral space was reapproximated with 2-0 Vicryl. The remaining tissue was closed with 0 Quill and 2-0 Quill running suture and steri-strips. A sterile dressing and shoulder immobilizer was placed. The patient was transferred to the recovery room. Physician occupational therapist's assistant, Alicia Houston PA-C, required for surgery; including patient positioning, draping, tissue retraction, maintaining instrument position, cement removal, wound closure, and dressing placement. [place]
[2023-06-01] MEDS: fentaNYL CITRATE INJ (*CRX) 100 MCG/2 ML VIAL 25 MCG IV PUSH ×6 (16:45→17:00)
[2023-06-01 16:49] LABS: Glucose Point of Care 130 mg/dl (65-105)
[2023-06-01] MEDS: HYDROmorphone HCL INJ (*CRX) 1 MG/ML SYR 0.5 MG IV PUSH ×4 (17:06→18:08)
--- NOTE | 2023-06-01 17:23 | SUR.PHASEI ---
1720: Dr. Sesay at bedside to perform nerve block.
--- NOTE | 2023-06-01 17:24 | WPDANESPNB ---
Anes - Peripheral Nerve Block Date/Time: 06/01/23 17:24 I have discussed with the patient/family/POA the placement of a peripheral nerve block for post-operative pain management, including associated risks, benefits, complications, and side effects. Alternative methods of post-operative analgesia were detailed. Questions were solicited and answers provided to the satisfaction of the patient/family/POA. Time-Out: A pre-procedural Time-Out was completed immediately before starting the procedure and confirmed: Patient Identification, Site, Procedure, Patient Position and the Availability of Requisite Equipment. Clinical Indications: Acute post-operative pain management requested by the operative surgeon. Nerve Block Insertion Note Anes-nerve block: interscalene right Patient position: supine Skin prep: chlorhexidine Needle: 22 gauge, stimulating, insulated echogenic needle. Needle length: 50 mm Technique: ultrasound Injectate: bupivacaine 0.5% with epi 5 mcg/ml (30cc- no epi) Observations: tolerated well Complications: none Procedure start time:: 1714 Procedure end time:: 1718
[2023-06-01 20:51] LABS: Glucose Point of Care 121 mg/dl (65-105)
[2023-06-01] MEDS: SIMVASTATIN 10 MG TABLET PO (21:11)
[2023-06-01] MEDS: lisinopriL 10 MG TABLET PO (21:11)
[2023-06-01] MEDS: ASPIRIN 81 MG ENTERIC TABLET PO (21:11)
[2023-06-01] MEDS: FAMOTIDINE 20 MG TABLET PO (21:11)
[2023-06-01] MEDS: SENNA/DOCUSATE SODIUM TABLET 2 TAB PO (21:12)
[2023-06-01] MEDS: ZOLPIDEM TARTRATE (*CRX) 5 MG TABLET 10 MG PO (23:49)
[2023-06-02] MEDS: ACETAMINOPHEN 500 MG TABLET 1000 MG PO ×3 (00:48→13:15)
[2023-06-02 03:56] VITALS: BP 126/83; PULSE 83; RESP 16; TEMP 35.5; O2SAT 95
[2023-06-02 06:15] LABS: Basophils Absolute Auto 0.1 K/mm3 (0.0-0.1); Basophils Percent Auto 0.3 % (0.2-1.2); Eosinophils Percent Auto 0.1 % (0-4.4); Hematocrit 47.2 % (42.0-52.0); Hemoglobin 15.2 g/dL (14.0-18.0); Immature Granulocyte Absolute 0.09 K/mm3 (0.00-0.031); Immature Granulocyte Percent A 0.5 % (0-0.5); Lymphocytes Absolute Auto 1.55 K/mm3 (0.9-3.2); Lymphocytes Percent Auto 8.7 % (18.3-44.2); Mean Corpuscular HGB Conc 32.2 g/dl (32-36); Mean Corpuscular Hemoglobin 33.3 pg (26-34); Mean Corpuscular Volume 103.5 fl (80-100); Monocytes Absolute Auto 1.9 K/mm3 (0.1-0.6); Monocytes Percent Auto 10.6 % (2.6-8.5); Neutrophils Absolute Auto 14.2 K/mm3 (1.3-6.7); Neutrophils Percent Auto 79.8 % (45.5-73.1); Platelet Count Result 228 k/mm3 (150-375); Red Blood Count 4.56 M/mm3 (4.6-6.20); Red Cell Distribution Width 14.9 % (11.5-14.5); White Blood Count 17.8 K/mm3 (4.5-10.0)
[2023-06-02] MEDS: ceFAZolin 2 GM/D5W 50 ML 2 GM/50 ML BAG IVPB ×2 (06:20→13:12)
[2023-06-02 06:27] LABS: Anion Gap 10 mmol/L (8-16); Blood Urea Nitrogen 19 mg/dL (9-20); Calcium 8.7 mg/dL (8.4-10.2); Carbon Dioxide 23 mmol/L (22-30); Chloride 103 mmol/L (98-107); Estimated CRCL calculation 79 ml/min; Estimated Glomerular Filt Rate > 60; Glucose 92 mg/dL (65-110); Potassium 4.1 mmol/L (3.4-5.0); Sodium 136 mmol/L (137-145)
[2023-06-02 08:00] VITALS: BP 136/81; PULSE 97; RESP 16; TEMP 36.4; O2SAT 92
[2023-06-02 08:05] LABS: Glucose Point of Care 117 mg/dl (65-105)
[2023-06-02] MEDS: SENNA/DOCUSATE SODIUM TABLET 2 TAB PO (08:41)
[2023-06-02] MEDS: FAMOTIDINE 20 MG TABLET PO (08:42)
[2023-06-02] MEDS: polyethylene glycoL 3350 17 GM POWD.PACK PO (08:42)
[2023-06-02] MEDS: ASPIRIN 81 MG ENTERIC TABLET PO (08:42)
--- NOTE | 2023-06-02 10:37 | P.PNAN_ITS ---
Anes - Prog Note Post-Op Date/Time: 06/02/23 10:37 Cardiovascular status: normal Respiratory status: normal Airway patency: baseline Mental status: baseline Post-Op hydration status: normal Vital Signs: Last Vital Signs Temp 36.4 C 06/02/23 08:00 Pulse 97 06/02/23 08:00 Resp 16 06/02/23 08:00 BP 136/81 06/02/23 08:00 Pulse Ox 92 06/02/23 08:00 O2 Del Method Room Air 06/02/23 09:26 O2 Flow Rate 2 06/01/23 22:40 Pain Score (VAS): 10/16 I/O: Intake & Output 06/01/23 06/02/23 06/02/23 23:59 07:59 15:59 Intake Total 150 602 Balance 150 602 Laboratory Tests 06/02/23 05:48 06/02/23 05:48 06/01/23 06/01/23 06/01/23 11:56 16:44 20:48 WBC RBC Hgb Hct MCV MCH MCHC RDW Plt Count MPV Immature Gran % (Auto) Neut % (Auto) Lymph % (Auto) [place] % (Auto) Eos % (Auto) Baso % (Auto) Lymph # (Auto) [place] # (Auto) Eos # (Auto) Baso # (Auto) Abs Immat Gran (auto) Absolute Neuts (auto) Absolute Nucleated RBC Nucleated RBC % Sodium Potassium Chloride Carbon Dioxide Anion Gap BUN Creatinine Estim Creat Clear Calc Estimated GFR Glucose POC Capillary Glucose 99 130 H 121 H Calcium 06/02/23 06/02/23 05:48 07:58 WBC 17.8 H RBC 4.56 L Hgb 15.2 Hct 47.2 MCV 103.5 H MCH 33.3 MCHC 32.2 RDW 14.9 H Plt Count 228 MPV 9.0 Immature Gran % (Auto) 0.5 Neut % (Auto) 79.8 H Lymph % (Auto) 8.7 L [place] % (Auto) 10.6 H Eos % (Auto) 0.1 Baso % (Auto) 0.3 Lymph # (Auto) 1.55 [place] # (Auto) 1.9 H Eos # (Auto) 0.0 Baso # (Auto) 0.1 Abs Immat Gran (auto) 0.09 H Absolute Neuts (auto) 14.2 H Absolute Nucleated RBC 0.0 Nucleated RBC % 0.0 Sodium 136 L Potassium 4.1 Chloride 103 Carbon Dioxide 23 Anion Gap 10 BUN 19 Creatinine 1.00 Estim Creat Clear Calc 79 Estimated GFR > 60 Glucose 92 POC Capillary Glucose 117 H Calcium 8.7 Post-procedural complaints: none Patient Feedback: Patient satisfied with anesthetic care. Other Findings: patient reports his pain was well controlled with RNB
[2023-06-02] MEDS: oxyCODONE HCL (*CRX) 5 MG TAB IR PO (10:44)
--- NOTE | 2023-06-02 10:56 | PM.DS ---
DS: Admitting Diagnosis Discharge Date 06/02/23 Admitting Diagnosis Glenohumeral joint arhtritis. DS: Discharge Diagnosis Discharge Diagnosis (1) Status post total replacement of right shoulder: Code(s): Z96.611 - Presence of right artificial shoulder joint Status: Acute Assessment and Plan: Postop day 1: Right anatomic total shoulder arthroplasty. Patient tolerated procedure well. No complications. Pain manageable with pain medication. No numbness or tingling. He does have an elevated white count (17.8) . Likely stress reaction due to surgery. Preop he was at 12.9. ROS negative for any other sorce of infection. He is feeling fine. Will give extended oral antibiotics per Dr. James. We had a lengthy discussion regarding postoperative wound care, limitations, expectations, and exercises. Patient shows good understanding. He has had initial physical therapy and is tolerating it well. DVT prophylaxis: 81 mg baby aspirin b.i.d. for 14 days. Pain medication: Percocet. Antibiotic: Bactrim for 3 weeks Patient has followup appointment with Dr. James in 3 weeks. DS: Summary Hospital Course Hospital Course: Right anatomic total shoulder arthroplasty. No complications. Patient has had initial physical therapy and occupational therapy. Status at Discharge Functional status at discharge: independent ambulation Overall status at discharge: patient is progressing back to baseline Time Spent with Patient Time attestation: Total time spent providing and/or coordinating discharge services: Exam Narrative: Overweight 67 y/o male. Alert and oriented x3. No acute distress. Resting comfortably in chair. Wearing sling. Dressing dry and intact with no drainage. Moderate swelling. Moderate ecchymosis. No erythema. Range of motion limited due to pain. Good finger, wrist, elbow range of motion. Neurologic status intact. Light touch sensation intact. Normal capillary refill. No varicosities. Distal pulses palpable. DS: Data Data Completed and Pending Labs on day of discharge: Labs from last 24 hours 06/02/23 06/02/23 06/01/23 07:58 05:48 20:48 WBC 17.8 H RBC 4.56 L Hgb 15.2 Hct 47.2 MCV 103.5 H MCH 33.3 MCHC 32.2 RDW 14.9 H Plt Count 228 MPV 9.0 Immature Gran % (Auto) 0.5 Neut % (Auto) 79.8 H Lymph % (Auto) 8.7 L [place] % (Auto) 10.6 H Eos % (Auto) 0.1 Baso % (Auto) 0.3 Lymph # (Auto) 1.55 [place] # (Auto) 1.9 H Eos # (Auto) 0.0 Baso # (Auto) 0.1 Abs Immat Gran (auto) 0.09 H Absolute Neuts (auto) 14.2 H Absolute Nucleated RBC 0.0 Nucleated RBC % 0.0 Sodium 136 L Potassium 4.1 Chloride 103 Carbon Dioxide 23 Anion Gap 10 BUN 19 Creatinine 1.00 Estim Creat Clear Calc 79 Estimated GFR > 60 Glucose 92 POC Capillary Glucose 117 H 121 H Calcium 8.7 06/01/23 06/01/23 16:44 11:56 WBC RBC Hgb Hct MCV MCH MCHC RDW Plt Count MPV Immature Gran % (Auto) Neut % (Auto) Lymph % (Auto) [place] % (Auto) Eos % (Auto) Baso % (Auto) Lymph # (Auto) [place] # (Auto) Eos # (Auto) Baso # (Auto) Abs Immat Gran (auto) Absolute Neuts (auto) Absolute Nucleated RBC Nucleated RBC % Sodium Potassium Chloride Carbon Dioxide Anion Gap BUN Creatinine Estim Creat Clear Calc Estimated GFR Glucose POC Capillary Glucose 130 H 99 Calcium Discharge Plan Discharge Patient Disposition: Home, Self-Care Discharge Instructions: See green instruction sheets Added an extended antibiotic due to increased white count. Stand Alone Forms: General Discharge Instructions Follow-up/Referrals: Alicia Houston PA [Physician Retail Loan Originator Assistant] - Discharge Medications: New aspirin 81 mg tablet,delayed release (DR/EC) 81 mg PO BID 14 Days Qty: 28 0RF oxycodone-acetaminophen 5-325 mg tablet
[2023-06-02 11:49] LABS: Glucose Point of Care 173 mg/dl (65-105)
[2023-06-02 12:00] VITALS: BP 123/77; PULSE 108; RESP 16; TEMP 35.9; O2SAT 94
[2023-06-02] MEDS: CELECOXIB 200 MG CAPSULE PO (12:08)
[2023-06-02] MEDS: metFORMIN HCL XR 500 MG TAB.SR.24H PO (12:10)
[2023-06-02] MEDS: oxyCODONE HCL (*CRX) 5 MG TAB IR 10 MG PO (14:30)
== END 2023-06-02 14:40 | disposition home or self-care (01) ==
LOC: ANHSURGERY 16:17 → ANH3MEDSUR 19:38
PROVIDERS: Physician Assistant Surgical; PCP Family Medicine; Visit Provider Orthopaedic Surgery
PROC: (CPT 23472; principal; 2023-06-01 13:30)
DX: M19.011 Primary osteoarthritis, right shoulder (principal); G89.18 Other acute postprocedural pain; I10 Essential (primary) hypertension; R73.03 Prediabetes; G47.33 Obstructive sleep apnea (adult) (pediatric); E66.9 Obesity, unspecified; Z68.31 Body mass index [BMI] 31.0-31.9, adult; Z87.891 Personal history of nicotine dependence; Z79.85 Long-term (current) use of injectable non-insulin antidiabetic drugs; Z79.84 Long term (current) use of oral hypoglycemic drugs
CPT/HCPCS: 23472; 64415; 36415; 73030; 80048; 82948; 85025; 86850; 86900; 86901; 87081; 93005; 97110; 97161; 97165; 97530; 97535; A4565; A9270; C1713; C1776; J0171; J0690; J1100; J1170; J1885; J2250; J2270; J2405; J2704; J2795; J3010; J3370; J7120

== ENCOUNTER 2024-06-27 10:48 | Outpatient (CLI) | payer OTHER, SELFPAY ==
--- NOTE | ~2024-06-27 | XR_ITS ---
XR hip RT 2V w AP pelvis Ordering provider: Donald James MD History: . No injury anterior right hip pain for 6-8 months . Comparison: December 29, 2023 FINDINGS: BONES: No acute fracture or dislocation. HIP JOINT SPACES: Right hip arthroplasty. SACROILIAC JOINT SPACES/LUMBAR SPINE: The sacroiliac joint spaces are normal. Mild degenerative evangelista es of the visualized lower lumbar spine. PUBIC SYMPHYSIS: Normal. SOFT TISSUES: Normal. IMPRESSION: No acute osseous abnormality pelvis. Right hip arthroplasty.. Reviewed, dictated and finalized at location A.
== END 2024-06-27 10:49 | disposition home or self-care (01) ==
LOC: GOSHIMG 10:50
PROVIDERS: PCP Family Medicine; Visit Provider Orthopaedic Surgery
DX: M25.551 Pain in right hip (principal)
CPT/HCPCS: 73502